=== PATIENT | female | born 1950 | race African-American/Black ===

== ENCOUNTER → 2016-12-29 | Outpatient (CLI) | payer OTHER ==
--- NOTE | ~2016-12-29 | MY29 ---
[facility] A Service of [facility] / [facility] RADIOLOGY TEXT RESULTS PATIENT: GRACY VARNER LOCATION: [facility] : 50 UNIT #: [id number] AGE: [address]: Raymond Chun MD SEX: F ORDER DR: [id number] [facility] [address] [place], [place] [address] [id number] O MR#: [id number] Acc #: [id number] NAME: GRACY VARNER : 1950 SEX: F STUDY DATE/TIME: 12/29/2016 9:40 UNIT: [facility] ROOM: STUDY DESCRIPTION: MY NOHELIA SCREENING W/ CAD BILAT Attending Physician: Raymond Chun M.D. Referring Physician: Raymond Chun M.D. Ordering Physician: Raymond Chun M.D. Primary Care Physician: Raymond Chun M.D. MEDICAL IMAGING REPORT This report is preliminary unless electronic signature is present EXAM Bilateral digital screening mammogram with CAD. HISTORY Routine screening. No current complaints. No family history of breast cancer. COMPARISON 12/25/15, 11/28/14. FINDINGS MLO and CC digital views of each breast were obtained. The exam was reviewed with a FDA approved CAD device. The breasts are heterogeneously dense. There are no masses or abnormal calcifications. There are postoperative changes on the left. There has been no change. IMPRESSION No change. No evidence of malignancy. Patients over the age of 40 are entered into a reminder system with target due date for the next mammogram. A result letter will also be sent to the patient. BIRADS: 1 Negative. Dictated by... Magdy Rose M.D. THIS IS AN ELECTRONICALLY VERIFIED REPORT Magdy Rose M.D. at 12/29/2016 3:17 PM [facility] A Service of [facility] / [facility] RADIOLOGY TEXT RESULTS PATIENT: GRACY VARNER LOCATION: [facility] : 50 UNIT #: [id number] AGE: [address]: Raymond Chun MD SEX: F ORDER DR: Jewels TD: 12/29/2016 13:32 JOB #: [id number] MEDICAL IMAGING REPORT Page 1 of 1 COPY
== END | disposition home or self-care (01) ==
LOC: CWCC 09:09
DX: Z12.31 Encounter for screening mammogram for malignant neoplasm of breast (principal)
CPT/HCPCS: G0202